=== PATIENT | male | born 1995 | race Caucasian/White ===

== ENCOUNTER 2018-06-01 13:56 | Emergency (ER) | payer OTHER ==
[2018-06-01 14:11] VITALS: RESP 16
--- NOTE | 2018-06-01 14:45 | ED ---
General Adult HPI - General Source: patient, RN notes reviewed, old records reviewed Mode of arrival: ambulatory Limitations: no limitations <Heriberto Mckeon - Last Filed: 06/01/18 15:39> <Karmon Suazo - Last Filed: 06/01/18 19:19> - General Chief complaint: Psychiatric Symptoms Stated complaint: mental health Time Seen by Provider: 06/01/18 13:58 - History of Present Illness Initial comments: 22-year-old male presents for psychiatric evaluation. Patient has been petitioned by his mother, he is brought in by local police. Patient does admit to ingesting Klonopin and mirtazapine throughout the day yesterday. He states this was recreational and in an attempt to get high. He denies any suicidal thoughts at the time my evaluation. He does admit to some cutting of his forearms which he states he does secondary to depression and benzodiazepine use. Again denying suicidal ideation or attempt. Patient denies any ingestion today. He has no physical complaints. (Heriberto Mckeon) - Related Data Home Medications Medication Instructions Recorded Confirmed Levothyroxine Sodium 150 mcg PO DAILY 06/01/18 06/01/18 Mirtazapine [Remeron] 15 mg PO HS 06/01/18 06/01/18 Venlafaxine HCl [Effexor XR] 150 mg PO DAILY 06/01/18 06/01/18 clonazePAM [KlonoPIN] 1 mg PO HS PRN 06/01/18 06/01/18 Allergies Allergy/AdvReac Type Severity Reaction Status Date / Time No Known Allergies Allergy Verified 06/01/18 15:03 Review of Systems ROS Other: All systems not noted in ROS Statement are negative. <Heriberto Mckeon - Last Filed: 06/01/18 15:39> ROS Other: All systems not noted in ROS Statement are negative. <Kamron Suazo - Last Filed: 06/01/18 19:19> ROS Statement: Those systems with pertinent positive or pertinent negative responses have been documented in the HPI. Past Medical History Past Medical History: No Reported History History of Any Multi-Drug Resistant Organisms: None Reported Past Surgical History: Appendectomy Past Psychological History: Anxiety, Depression Smoking Status: Never smoker Past Alcohol Use History: Occasional Past Drug Use History: Marijuana - Past Family History Father Additional Family Medical History / Comment(s): His father in his 40s from pneumonia and Xanax overdose. Mother Additional Family Medical History / Comment(s): Mother is alive at age 49 with history of depression and anxiety. Sister(s) Additional Family Medical History / Comment(s): He has one sister with a pacemaker. He has one half brother that he has never seen. He does not have any children of his own. <Heriberto Mckeon - Last Filed: 06/01/18 15:39> General Exam Limitations: no limitations General appearance: alert, in no apparent distress Head exam: Present: atraumatic, normocephalic Eye exam: Present: normal appearance, PERRL ENT exam: Present: normal exam Neck exam: Present: normal inspection. Absent: tenderness, meningismus Respiratory exam: Present: normal lung sounds bilaterally. Absent: respiratory distress, wheezes Cardiovascular Exam: Present: regular rate, normal rhythm GI/Abdominal exam: Present: soft. Absent: distended, tenderness Extremities exam: Present: other (Bilateral superficial abrasion to the upper extremities. No repairable laceration) Neurological exam: Present: alert, oriented X3, CN II-XII intact. Absent: motor sensory deficit Psychiatric exam: Present: normal affect, normal mood. Absent: homicidal ideation, suicidal ideation Skin exam: Present: warm, dry, intact. Absent: cyanosis, diaphoretic <Heriberto Mckeon - Last Filed: 06/01/18 15:39> Course <Heriberto Mckeon - Last Filed: 06/01/18 15:39> <Kamron Suazo - Last Filed: 06/01/18 19:19> Vital Signs 06/01/18 06/01/18 14:06 18:48 Temperature 97.5 F L 98.7 F Pulse Rate 86 87 Respiratory 16 16 Rate Blood Pressure 119/69 101/55 O2 Sat by Pulse 100 95 Oximetry - Reevaluation(s) Reevaluation #1: 06/01/18 15:40 22-year-old male brought in for mental health evaluation. Patient did have ingestion yesterday which he states was recreational and not related to suicide attempt. EKG and laboratory studies are unremarkable. Patient is medically cleared and awaiting EPS evaluation. (Heriberto Mckeon) EKG Findings - EKG Comments: EKG Findings:: EKG: Normal sinus rhythm, rate of 91, [place] interval 150, QRS duration 94, QTC 413, no ST segment elevation or depression <Heriberto Mckeon - Last Filed: 06/01/18 15:39> Medical Decision Making - Lab Data Result diagrams: 06/01/18 14:46 06/01/18 14:46 <Heriberto Mckeon - Last Filed: 06/01/18 15:39> - Lab Data Result diagrams: 06/01/18 14:46 06/01/18 14:46 <Kamron Suazo - Last Filed: 06/01/18 19:19> - Medical Decision Making Patient was seen by mental health services who recommends discharge. Patient reevaluated and resting comfortably in bed. Patient denies suicidal ideation and does contract for safety. (Kamron Suazo) - Lab Data Lab Results 06/01/18 06/01/18 06/01/18 Range/Units 14:46 14:46 14:46 WBC 6.1 (3.8-10.6) k/uL RBC 5.32 (4.30-5.90) m/uL Hgb 15.8 (13.0-17.5) gm/dL Hct 48.2 (39.0-53.0) % MCV 90.6 (80.0-100.0) fL MCH 29.7 (25.0-35.0) pg MCHC 32.8 (31.0-37.0) g/dL RDW 13.0 (11.5-15.5) % Plt Count 251 (150-450) k/uL Neutrophils % 53 % Lymphocytes % 31 % Monocytes % 8 % Eosinophils % 5 % Basophils % 0 % Neutrophils # 3.3 (1.3-7.7) k/uL Lymphocytes # 1.9 (1.0-4.8) k/uL Monocytes # 0.5 (0-1.0) k/uL Eosinophils # 0.3 (0-0.7) k/uL Basophils # 0.0 (0-0.2) k/uL PT (9.0-12.0) sec INR (<1.2) Sodium 142 (137-145) mmol/L Potassium 4.7 (3.5-5.1) mmol/L Chloride 104 (98-107) mmol/L Carbon Dioxide 31 H (22-30) mmol/L Anion Gap 7 mmol/L BUN 18 (9-20) mg/dL Creatinine 0.83 (0.66-1.25) mg/dL Est GFR (CKD-EPI)AfAm >90 (>60 ml/min/1.73 sqM) Est GFR (CKD-EPI)NonAf >90 (>60 ml/min/1.73 sqM) Glucose 89 (74-99) mg/dL Calcium 9.8 (8.4-10.2) mg/dL Total Bilirubin 0.3 (0.2-1.3) mg/dL AST 36 (17-59) U/L ALT 48 (21-72) U/L Alkaline Phosphatase 71 (38-126) U/L Total Protein 8.0 (6.3-8.2) g/dL Albumin 4.4 (3.5-5.0) g/dL Salicylates <1.0 mg/dL Urine Opiates Screen Not Detected (NotDetected) Ur Oxycodone Screen Not Detected (NotDetected) Urine Methadone Screen Not Detected (NotDetected) Ur Propoxyphene Screen Not Detected (NotDetected) Acetaminophen <10.0 ug/mL Ur Barbiturates Screen Not Detected (NotDetected) U Tricyclic Antidepress Not Detected (NotDetected) Ur Phencyclidine Scrn Not Detected (NotDetected) Ur Amphetamines Screen Not Detected (NotDetected) U Methamphetamines Scrn Detected H (NotDetected) U Benzodiazepines Scrn Detected H (NotDetected) Urine Cocaine Screen Not Detected (NotDetected) U Marijuana (THC) Screen Detected H (NotDetected) Serum Alcohol <10 mg/dL 06/01/18 Range/Units 14:46 WBC (3.8-10.6) k/uL RBC (4.30-5.90) m/uL Hgb (13.0-17.5) gm/dL Hct (39.0-53.0) % MCV (80.0-100.0) fL MCH (25.0-35.0) pg MCHC (31.0-37.0) g/dL RDW (11.5-15.5) % Plt Count (150-450) k/uL Neutrophils % % Lymphocytes % % Monocytes % % Eosinophils % % Basophils % % Neutrophils # (1.3-7.7) k/uL Lymphocytes # (1.0-4.8) k/uL Monocytes # (0-1.0) k/uL Eosinophils # (0-0.7) k/uL Basophils # (0-0.2) k/uL PT 10.6 (9.0-12.0) sec INR 1.1 (<1.2) Sodium (137-145) mmol/L Potassium (3.5-5.1) mmol/L Chloride (98-107) mmol/L Carbon Dioxide (22-30) mmol/L Anion Gap mmol/L BUN (9-20) mg/dL Creatinine (0.66-1.25) mg/dL Est GFR (CKD-EPI)AfAm (>60 ml/min/1.73 sqM) Est GFR (CKD-EPI)NonAf (>60 ml/min/1.73 sqM) Glucose (74-99) mg/dL Calcium (8.4-10.2) mg/dL Total Bilirubin (0.2-1.3) mg/dL AST (17-59) U/L ALT (21-72) U/L Alkaline Phosphatase (38-126) U/L Total Protein (6.3-8.2) g/dL Albumin (3.5-5.0) g/dL Salicylates mg/dL Urine Opiates Screen (NotDetected) Ur Oxycodone Screen (NotDetected) Urine Methadone Screen (NotDetected) Ur Propoxyphene Screen (NotDetected) Acetaminophen ug/mL Ur Barbiturates Screen (NotDetected) U Tricyclic Antidepress (NotDetected) Ur Phencyclidine Scrn (NotDetected) Ur Amphetamines Screen (NotDetected) U Methamphetamines Scrn (NotDetected) U Benzodiazepines Scrn (NotDetected) Urine Cocaine Screen (NotDetected) U Marijuana (THC) Screen (NotDetected) Serum Alcohol mg/dL Disposition <Heriberto Mckeon - Last Filed: 06/01/18 15:39> Is patient prescribed a controlled substance at d/c from ED?: No Time of Disposition: 19:19 <Kamron Suazo - Last Filed: 06/01/18 19:19> Clinical Impression: Misuse of prescription only drugs Disposition: HOME SELF-CARE Condition: Stable Instructions: Polysubstance Abuse (ED), Depression (ED), Suicide Prevention for Adults (ED) Additional Instructions: Please only taking your medications as prescribed. Follow-up with primary care physician in the next day or 2 for recheck. Return for thoughts of self-harm, worsening symptoms or other concerns. Referrals: Ashkan Bradley MD [Primary Care Provider] - 1-2 days
[2018-06-01 15:01] LABS: Basophils % (A) 0 %; Eosinophils # (A) 0.3 k/uL (0-0.7); Eosinophils % (A) 5 %; HCT 48.2 % (39.0-53.0); HGB 15.8 gm/dL (13.0-17.5); Lymphocytes # (A) 1.9 k/uL (1.0-4.8); Lymphocytes % (A) 31 %; MCH 29.7 pg (25.0-35.0); MCHC 32.8 g/dL (31.0-37.0); MCV 90.6 fL (80.0-100.0); Mean Platelet Volume 7.2; Monocytes # (A) 0.5 k/uL (0-1.0); Monocytes % (A) 8 %; Neutrophils # (A) 3.3 k/uL (1.3-7.7); Neutrophils % (A) 53 %; Platelet Count 251 k/uL (150-450); RBC 5.32 m/uL (4.30-5.90); WBC 6.1 k/uL (3.8-10.6)
[2018-06-01 15:13] LABS: ALT 48 U/L (21-72); AST 36 U/L (17-59); Acetaminophen <10.0 ug/mL; Albumin 4.4 g/dL (3.5-5.0); Alcohol <10 mg/dL; Alkaline Phosphatase 71 U/L (38-126); Anion Gap 7 mmol/L; Blood Urea Nitrogen 18 mg/dL (9-20); Calcium 9.8 mg/dL (8.4-10.2); Carbon Dioxide 31 mmol/L (22-30); Chloride 104 mmol/L (98-107); Glucose 89 mg/dL (74-99); Potassium 4.7 mmol/L (3.5-5.1); Salicylate <1.0 mg/dL; Sodium 142 mmol/L (137-145); Total Bilirubin 0.3 mg/dL (0.2-1.3)
[2018-06-01 15:15] LABS: INR 1.1 (<1.2); Prothrombin Time 10.6 sec (9.0-12.0)
[2018-06-01 15:20] LABS: Amphetamine Screen,Urine Not Detected (NotDetected); Barbiturate Screen,Urine Not Detected (NotDetected); Benzodiazepines Screen,Urine Detected (NotDetected); Cocaine Screen,Urine Not Detected (NotDetected); Methadone Screen, Urine Not Detected (NotDetected); Opiate Screen,Urine Not Detected (NotDetected); Oxycodone Screen, Urine Not Detected (NotDetected); Phencyclidine Screen,Urine Not Detected (NotDetected); Tricyclic Antidepressant,Urine Not Detected (NotDetected); Urn Cannabinoid Scrn Detected (NotDetected)
[2018-06-01 18:49] VITALS: BP 101/55; PULSE 87; TEMP 98.7
== END 2018-06-01 19:30 | disposition home or self-care (01) ==
LOC: EC 13:56
DX: S50.812A Abrasion of left forearm, initial encounter (principal); S50.811A Abrasion of right forearm, initial encounter; F19.90 Other psychoactive substance use, unspecified, uncomplicated; F32.9 Major depressive disorder, single episode, unspecified; F41.9 Anxiety disorder, unspecified; Z79.899 Other long term (current) drug therapy; Z81.8 Family history of other mental and behavioral disorders
CPT/HCPCS: 36415; 80053; 80306; 80320; 82075; 83520; 85025; 85610; 93005; 99285